=== PATIENT | female | born 1955 | race Hispanic/Latino ===

== ENCOUNTER → 2024-12-06 | Day surgery (SDC) | payer OTHER ==
--- NOTE | 2024-12-06 11:42 | RAD REPORT ---
Exam: THYROID NODULE FNA PREPROCEDURE DIAGNOSIS: thyroid nodule. E04..1 PROCEDURE: Left thyroid nodule FNA. SPECIMEN: 5 - 25-gauge FNA specimens of the left thyroid nodule. TECHNIQUE: Prior to the procedure , the risks and benefits of a thyroid FNA were explained with the patient otilio huynh consented fully to the procedure. Real-time ultrasound was used to identify the left thyroid nodule. . The neck was then prepped and draped in the usual sterile fashion. Lidocaine was used to anesthetize the skin and soft tissues down towards the thyroid nodule. 5 separa te 25-gauge needles were then placed using ultrasound guidance into the nodule and specimen was obtained within the needle using a to and fro motion. These needles were placed in solution provided by pathology. The patient tolerated the procedure well without immediate post procedure complication. IMPRESSION: Ultrasound-guided fine-needle aspiration left thyroid nodule
== END ==
LOC: FNA 09:18
PROVIDERS: ATTEND Nurse Practitioner Family
PROC: 0GBG3ZX Excision of Left Thyroid Gland Lobe, Percutaneous Approach, Diagnostic (ICD-10-PCS; principal; 2024-12-06)
DX: E04.1 Nontoxic single thyroid nodule (principal)
CPT/HCPCS: 88162